=== PATIENT | male | born 1980 | race Caucasian/White ===

== ENCOUNTER 2017-01-13 00:07 | Emergency (ER) | payer BC ==
[~2017-01-13] VITALS: Ht 177.8 cm; Wt 100.0 kg
[2017-01-13] MEDS ORDERED: FLONASE ALLERG9.9 ML NS (00:43)
[2017-01-13] MEDS ORDERED: ZOFRAN ODT4 MG PO (03:12)
[2017-01-13 03:17] VITALS: BP 124/71
== END 2017-01-13 03:17 | disposition home or self-care (01) ==
LOC: ED 00:07
DX: R11.2 Nausea with vomiting, unspecified (principal); R10.816 Epigastric abdominal tenderness; M54.9 Dorsalgia, unspecified; G89.29 Other chronic pain
CPT/HCPCS: J1885

== ENCOUNTER → 2018-10-30 | Outpatient (CLI) | payer BC ==
[~2018-10-30] MED LIST: FLONASE ALLERG9.9 ML NS; ZOFRAN ODT4 MG PO
== END ==
LOC: LAB 19:26
DX: K05.219 Aggressive periodontitis, localized, unspecified severity (principal)

== ENCOUNTER → 2019-10-12 | Outpatient (CLI) | payer BC ==
[~2019-10-12] MED LIST changes: +CEPHALEXIN500 M1 PO; +NORCO 325 MG-51 TA1 PO
[2019-10-12 14:40] VITALS: BP 132/82
--- NOTE | 2019-10-12 14:45 | NUR ---
Discussed w/ pt s/s of infection and understanding verbalized. Incision line remains well approximated after suture removal. Pt tolerates well.
== END ==
LOC: AMSURD 14:39
DX: Z48.02 Encounter for removal of sutures (principal)

== ENCOUNTER → 2021-08-22 | Outpatient (CLI) | payer BC | LOC: VAS 08:54 → RAD 09:00 → VAS 09:00 | DX: R01.1 Cardiac murmur, unspecified (principal) ==